=== PATIENT | male | born 1985 | race Caucasian/White ===

== ENCOUNTER 2021-02-23 23:19 | Emergency (ER) | payer MEDICAID ==
[2021-02-23] MEDS ORDERED: Fluorescein Opthalmic Strip ONE (23:48)
[2021-02-23] MEDS ORDERED: Tetracaine 0.5% PF 4 ML BOT ONE (23:48)
== END 2021-02-23 23:56 | disposition home or self-care (01) ==
LOC: CSHERS 23:19
DX: S05.02XA Injury of conjunctiva and corneal abrasion without foreign body, left eye, initial encounter (principal); W22.8XXA Striking against or struck by other objects, initial encounter
CPT/HCPCS: 99283

== ENCOUNTER 2022-06-13 19:20 | Emergency (ER) | payer MEDICAID, OTHER ==
[2022-06-13] MEDS ORDERED: cefTRIAXone\\ROCEPHIN 500 MG VIAL ONE (21:12)
[2022-06-13] MEDS ORDERED: Lidocaine 1% MPF 2 ML VIAL ONE (21:12)
[2022-06-13] MEDS ORDERED: Fluconazole 100 MG TAB PO SCH (21:15)
[2022-06-13 22:25] LABS: Syphilis Antibody Nonreactive (Nonreactive); Syphilis Antibody Index 0.07 S/CO (<1.00 Non-Reactive)
[2022-06-14 19:49] LABS: Chlam.trachomatis by PCR,Urine Not Detected (NotDetected); GC N.gonorrhoeae PCR,UrineVOID Not Detected (NotDetected)
[2022-06-17 09:17] LABS: HSV 1 - DNA Negative (Negative); HSV 2 - DNA Negative (Negative)
== END 2022-06-13 21:30 | disposition home or self-care (01) ==
LOC: CSHERS 19:20
DX: N48.1 Balanitis (principal)
CPT/HCPCS: 86780; 87491; 87529; 87591; 96372; 99283; J0696